=== PATIENT | male | born 1955 | race African-American/Black ===

== ENCOUNTER 2017-06-17 12:24 | Inpatient (IN) | payer OTHER ==
[2017-06-17 12:45] VITALS: BMI 27.5
--- NOTE | 2017-06-17 15:16 | HP ---
CIWA Score - CIWA Score Nausea/Vomitin Muscle Tremors: 3 Anxiety: 3 Agitation: 2 Paroxysmal Sweats: 2 Orientation: 0-Oriented Tacttile Disturbances: 1-Very Mild Itch/Numbness Auditory Disturbances: 0-None Visual Disturbances: 0-None Headache: 1-Very Mild CIWA-Ar Total Score: 15 Admission ROS BHS - HPI Chief Complaint: I need detox from alcohol and I want to go to rehab Allergies/Adverse Reactions: Allergies Allergy/AdvReac Type Severity Reaction Status Date / Time lisinopril Allergy Intermediate Swelling, Verified 06/01/15 13:11 HIVES ,SOB History of Present Illness: 61 y/o male with h/o alcohol dependence presents for rehab. 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 - Ebola screening Have you traveled outside of the country in the last 21 days: No Have you had contact with anyone from an Ebola affected area: No Have you been sick,other than usual withdrawal symptoms: No Do you have a fever: No - Review of Systems Constitutional: Loss of Appetite, Unintentional Wgt. Loss EENT: reports: Dental Problems (missing some teeth) Respiratory: reports: No Symptoms reported Cardiac: reports: No Symptoms Reported GI: reports: Poor Appetite, Poor Fluid Intake : reports: No Symptoms Reported Musculoskeletal: reports: Back Pain, Muscle Pain Integumentary: reports: No Symptoms Reported Neuro: reports: Headache, Numbness, Seizure, Tremors Endocrine: reports: No Symptoms Reported Hematology: reports: No Symptoms Reported Psychiatric: reports: Anxious Other Systems: Reviewed and Negative Patient History - Patient Medical History Hx Anemia: No Hx Asthma: Yes (Pt is on MDI.) Hx Chronic Obstructive Pulmonary Disease (COPD): No Hx Cancer: No Hx Cardiac Disorders: Yes (CABG/ stent placement x3 in 2011) Hx Congestive Heart Failure: No Hx Hypertension: Yes Hx Hypercholesterolemia: Yes (on medication) Hx Pacemaker: No HX Cerebrovascular Accident: Yes (2000 mild left sided weakness; walks with limp ) Hx Seizures: No Hx Dementia: No Hx Diabetes: No Hx Gastrointestinal Disorders: Yes (GERD) Hx Liver Disease: No Hx Genitourinary Disorders: Yes Hx Sexually Transmitted Disorders: No Hx Renal Disease (ESRD): No Hx Thyroid Disease: No Hx Human Immunodeficiency Virus (HIV): No Hx Hepatitis C: No Hx Depression: No Hx Suicide Attempt: No Hx Bipolar Disorder: No Hx Schizophrenia: No - Patient Surgical History Past Surgical History: Yes Hx Neurologic Surgery: No Hx Cataract Extraction: No Hx Cardiac Surgery: Yes (CABG IN 2000 STENT X3 2011) Hx Lung Surgery: No Hx Breast Surgery: No Hx Breast Biopsy: No Hx Abdominal Surgery: No Hx Appendectomy: No Hx Cholecystectomy: No Hx Genitourinary Surgery: No Hx Section: No Hx Orthopedic Surgery: Yes (BILATERAL HIP REPLACEMENT X 2 2010( UNABLE TO REMEMBER EXACT DATES)) Other Surgical History: R KIDNEY BIOPSY IN 1997 Anesthesia Reaction: No - PPD History Previous Implant?: Yes Documented Results: Negative w/proof Implanted On Prior R Admission?: Yes Date: 01/01/15 Results: 0 mm - Smoking Cessation Smoking history: Current every day smoker Have you smoked in the past 12 months: Yes Aproximately how many cigarettes per day: 10 Hx Chewing Tobacco Use: No Initiated information on smoking cessation: Yes 'Breaking Loose' booklet given: 06/17/17 - Substance & Tx. History Hx Alcohol Use: Yes (vodka) Hx Substance Use: Yes Substance Use Type: Cocaine, Marijuana Hx Substance Use Treatment: Yes - Substances Abused Alcohol Route: Oral Frequency: Daily Amount used: 1 quart Age of first use: 16 Date of Last Use: 06/17/17 Alprazolam (Xanax) Route: Oral Frequency: 1-2 times per week Amount used: 2mg Age of first use: 52 Date of Last Use: 06/10/17 Cocaine Route: Inhalation Frequency: 1-2 times per week Amount used: 30-40 dollars Age of first use: 47 Date of Last Use: 06/10/17 Marijuana/Hashish Route: Smoking Frequency: Daily Amount used: $30 Age of first use: 16 Date of Last Use: 06/16/17 Family Disease History - Family Disease History Family Disease History: Diabetes: Mother (), Brother, Heart Disease: Father (), Mother Admission Physical Exam S - Vital Signs Vital Signs: Vital Signs - 24 hr 06/17/17 12:39 Temperature 97.4 F L Pulse Rate 89 Respiratory 20 Rate Blood Pressure 127/74 - Physical General Appearance: Yes: No Apparent Distress, Appropriately Dressed HEENTM: Yes: Hearing grossly Normal, Normal ENT Inspection, Normocephalic, Normal Voice, JOSEFINA Respiratory: Yes: Chest Non-Tender, Lungs Clear, No Respiratory Distress, No Accessory Muscle Use Neck: Yes: No masses,lesions,Nodules Breast: Yes: Breast Exam Deferred Cardiology: Yes: Regular Rhythm, Regular Rate Abdominal: Yes: Normal Bowel Sounds, Non Tender, Soft Genitourinary: Yes: Within Normal Limits Back: Yes: Normal Inspection Musculoskeletal: Yes: full range of Motion, Pelvis Stable Extremities: Yes: Normal Inspection, Normal Range of Motion, Non-Tender Neurological: Yes: bindery worker II-XII NML intact, Alert, Normal Mood/Affect Integumentary: Yes: Normal Color, Warm Lymphatic: Yes: Within Normal Limits - Diagnostic (1) Benign essential hypertension Current Visit: Yes Status: Chronic (2) Cannabis dependence Current Visit: Yes Status: Acute (3) Hypercholesterolemia Current Visit: Yes Status: Chronic (4) Nicotine dependence Current Visit: Yes Status: Chronic (5) Alcohol dependence with uncomplicated withdrawal Current Visit: Yes Status: Acute (6) Hypertension Current Visit: Yes Status: Acute Qualifiers: Hypertension type: essential hypertension Qualified Code(s): I10 - Essential (primary) hypertension (7) Cocaine abuse Current Visit: Yes Status: Acute (8) CAD (coronary artery disease) Current Visit: Yes Status: Acute BHS Breath Alcohol Content Breath Alcohol Content: 0.226 Urine Drug Screen - Results Drug Screen Negative: No Urine Drug Screen Results: THC-Marijuana, GENE-Cocaine, BZO-Benzodiazepines
[2017-06-17] MEDS ORDERED: chlordiazePOXIDE HCL 25 MG CAPSULE PO ONE (15:30)
[2017-06-17] MEDS ORDERED: MAGNESIUM HYDROX 2400MG/30ML ORAL SUSPENSION 30 ML CUP PO PRN (15:30)
[2017-06-17] MEDS ORDERED: NICOTINE POLACRILEX 2 MG GUM BUC PRN (15:30)
[2017-06-17] MEDS ORDERED: MAGNESIUM CITRATE 300 ML BOTTLE PO PRN (15:30)
[2017-06-17] MEDS ORDERED: LOPERAMIDE HCL 2 MG CAPSULE PO PRN (15:30)
[2017-06-17] MEDS ORDERED: guaiFENesin/D-METHORPHAN HB 10 ML UNIT-DOSE CUPS PO PRN (15:30)
[2017-06-17] MEDS ORDERED: ACETAMINOPHEN 325 MG TABLET (FP) PO PRN (15:30)
[2017-06-17] MEDS ORDERED: P-EPHED 60MG/TRIPROLIDI 2.5MG TABLET PO PRN (15:30)
[2017-06-17] MEDS ORDERED: MAG HYDROX/AL HYDROX/SIMETH 30 ML UNIT-DOSE CUP PO PRN (15:30)
[2017-06-17] MEDS ORDERED: IBUPROFEN 400 MG TABLET (FP) PO PRN (15:30)
[2017-06-17] MEDS ORDERED: MENTHOL/PHENOL 1 EACH UD MM PRN (15:30)
[2017-06-17] MEDS ORDERED: ALBUTEROL SO4 6.7 GM HFA INHALER IH PRN (15:40)
[2017-06-17] MEDS: chlordiazePOXIDE HCL 25 MG CAPSULE PO SCH ×2 (18:07→22:22)
[2017-06-17] MEDS: NICOTINE 14 MG/24 HOURS TOPICAL PATCH TD SCH (18:12)
--- NOTE | 2017-06-17 18:46 | PN ---
S Progress Note Note: Patient with abnormal EKG, repeat ordered for tomorrow morning.
[2017-06-17] MEDS: THIAMINE HCL 100 MG TABLET (FP) PO SCH (22:22)
[2017-06-17] MEDS: diphenhydrAMINE HCL 50 MG CAPSULE PO PRN (23:24)
[2017-06-18] MEDS: hydrALAZINE HCL 10 MG TABLET PO SCH ×3 (00:05→22:06)
[2017-06-18] MEDS: ROSUVASTATIN CA 40 MG TABLET PO SCH ×2 (00:07→22:06)
[2017-06-18 00:23] LABS: URINE APPEARANCE CLEAR; URINE BILIRUBIN NEGATIVE (NEGATIVE); URINE BLOOD NEGATIVE (NEGATIVE); URINE COLOR YELLOW; URINE GLUCOSE (UA) NEGATIVE (NEGATIVE); URINE KETONE NEGATIVE (NEGATIVE); URINE LEUK ESTERASE NEGATIVE (NEGATIVE); URINE NITRITE NEGATIVE (NEGATIVE); URINE UROBILINOGEN NEGATIVE mg/dL (0.2-1.0)
[2017-06-18 00:31] LABS: URINE PROTEIN 1+ (NEGATIVE)
[2017-06-18 00:38] LABS: URINE MUCUS RARE; URINE RBC 2 /hpf (0-3); URINE WBC 2 /hpf (3-5)
[2017-06-18] MEDS: chlordiazePOXIDE HCL 25 MG CAPSULE PO SCH ×4 (05:16→22:06)
[2017-06-18 09:47] LABS: MCH 30.1 pg (25.7-33.7); MCHC 33.4 g/dl (32.0-35.9); MEAN CELL VOLUME 90.2 fl (80-96); PLATELET COUNT 198 K/MM3 (134-434); RDW 14.2 % (11.9-15.9); WHITE BLOOD COUNT 4.7 K/mm3 (4.0-10.0)
--- NOTE | 2017-06-18 09:53 | EKG ---
Test Reason : Blood Pressure : / mmHG Vent. Rate : 074 BPM Atrial Rate : 074 BPM P-R Int : 160 ms QRS Dur : 088 ms QT Int : 418 ms P-R-T Axes : 049 034 -40 degrees QTc Int : 463 ms NORMAL SINUS RHYTHM INFERIOR INFARCT (CITED ON OR BEFORE 17-JUN-2017) ABNORMAL ECG WHEN COMPARED WITH ECG OF 17-JUN-2017 18:17, NO SIGNIFICANT CHANGE WAS FOUND Confirmed by MD JOSSELYN, NOEL ([id number]) on 06/18/2017 9:52:33 AM Referred By: Confirmed By:NOEL ARCOS MD
--- NOTE | 2017-06-18 09:54 | EKG ---
Test Reason : Blood Pressure : / mmHG Vent. Rate : 065 BPM Atrial Rate : 065 BPM P-R Int : 162 ms QRS Dur : 084 ms QT Int : 412 ms P-R-T Axes : 058 037 013 degrees QTc Int : 428 ms NORMAL SINUS RHYTHM INFERIOR INFARCT , AGE UNDETERMINED T WAVE ABNORMALITY, CONSIDER LATERAL ISCHEMIA ABNORMAL ECG NO PREVIOUS ECGS AVAILABLE Confirmed by MD JOSSELYN, NOEL ([id number]) on 06/18/2017 9:54:28 AM Referred By: Confirmed By:NOEL ARCOS MD
[2017-06-18 09:57] LABS: ALBUMIN 3.3 g/dl (3.4-5.0); ANION GAP 12 (8-16); CALCIUM 8.5 mg/dL (8.5-10.1); CO2 26 mmol/L (21-32); GLUCOSE,RANDOM 104 mg/dL (74-106); SGOT/AST 15 U/L (15-37); SGPT/ALT 16 U/L (12-78)
[2017-06-18 09:59] LABS: ALK PHOS 49 U/L (45-117); BILIRUBIN,TOTAL 0.5 mg/dL (0.2-1.0); TOT PROT 6.6 g/dl (6.4-8.2)
[2017-06-18] MEDS: hydrOXYzine PAMOATE 50 MG CAPSULE (FP) PO PRN ×2 (10:38→17:40)
[2017-06-18] MEDS: CLOPIDOGREL BISULFATE 75 MG TABLET (FP) PO SCH (10:39)
[2017-06-18] MEDS: ASPIRIN COATED 81 MG TABLET.EC PO SCH (10:39)
[2017-06-18] MEDS: PRENATAL VITAMINS W/ FOLIC ACID TABLET (FP) PO SCH (10:39)
[2017-06-18] MEDS: NICOTINE 14 MG/24 HOURS TOPICAL PATCH TD SCH (10:39)
[2017-06-18] MEDS: SPIRONOLACTONE 25 MG TABLET (FP) PO SCH (10:39)
[2017-06-18] MEDS: amLODIPine BESYLATE 10 MG TABLET (FP) PO SCH (10:39)
[2017-06-18] MEDS: chlordiazePOXIDE HCL 25 MG CAPSULE PO PRN (12:27)
[2017-06-18] MEDS: LIDOCAINE 5% TOPICAL PATCH TP SCH (12:28)
[2017-06-18] MEDS ORDERED: POTASSIUM CHLORIDE TABS 20 MEQ TABLET.ER (FP) PO ONE (17:09)
--- NOTE | 2017-06-18 17:17 | PN ---
S CIWA - CIWA Score Nausea/Vomitin-Mild Nausea/No Vomiting Muscle Tremors: 4-Moderate,w/Arms Extend Anxiety: 4-Mod. Anxious/Guarded Agitation: 4-Moderately Restless Paroxysmal Sweats: 3 Orientation: 0-Oriented Tacttile Disturbances: 1-Very Mild Itch/Numbness Auditory Disturbances: 0-None Visual Disturbances: 0-None Headache: 1-Very Mild CIWA-Ar Total Score: 18 BHS Progress Note (SOAP) Subjective: Anxiety, chills, sweating, headache, nausea, diarrhea Objective: 06/18/17 17:13 Last Vital Signs Temp Pulse Resp BP Pulse Ox 98.0 F 78 20 114/76 06/18/17 13:22 06/18/17 13:22 06/18/17 13:22 06/18/17 13:22 Laboratory Tests 06/17/17 06/18/17 06/18/17 21:22 07:50 07:50 WBC 4.7 RBC 4.78 Hgb 14.4 D Hct 43.1 MCV 90.2 MCH 30.1 MCHC 33.4 RDW 14.2 Plt Count 198 MPV 8.0 Sodium 140 Potassium 3.1 L Chloride 102 Carbon Dioxide 26 Anion Gap 12 BUN 12 D Creatinine 1.0 Creat Clearance w eGFR > 60 Random Glucose 104 Calcium 8.5 Total Bilirubin 0.5 D AST 15 D ALT 16 D Alkaline Phosphatase 49 D Total Protein 6.6 D Albumin 3.3 L D Urine Color Yellow Urine Appearance Clear Urine pH 6.0 Ur Specific [place] 1.015 Urine Protein 1+ H Urine Glucose (UA) Negative Urine Ketones Negative Urine Blood Negative Urine Nitrite Negative Urine Bilirubin Negative Urine Urobilinogen Negative Ur Leukocyte Esterase Negative Urine RBC 2 Urine WBC 2 Urine Mucus Rare RPR Titer 06/18/17 07:50 WBC RBC Hgb Hct MCV MCH MCHC RDW Plt Count MPV Sodium Potassium Chloride Carbon Dioxide Anion Gap BUN Creatinine Creat Clearance w eGFR Random Glucose Calcium Total Bilirubin AST ALT Alkaline Phosphatase Total Protein Albumin Urine Color Urine Appearance Urine pH Ur Specific [place] Urine Protein Urine Glucose (UA) Urine Ketones Urine Blood Urine Nitrite Urine Bilirubin Urine Urobilinogen Ur Leukocyte Esterase Urine RBC Urine WBC Urine Mucus RPR Titer Nonreactive Labs noted: K 3.1, UA: 1+ protein Assessment: 06/18/17 17:14 Withdrawal symptoms Noted with hypokalemia and proteinuria Plan: Continue detox; lidocaine patch ordered for b/l hip pain (patient stated s/p b/ l hip replacement). EKGs noted (no change from previous EKG) Hypokalemia: K Dur 40 meq PO x 1 dose, repeat BMP in AM Proteinuria: encouraged to drink lots of water (water pitcher ordered), repeat UA in AM
[2017-06-18] MEDS: THIAMINE HCL 100 MG TABLET (FP) PO SCH (22:06)
[2017-06-18] MEDS: LIDOCAINE PATCH REMOVAL MC SCH (22:06)
[2017-06-18] MEDS: diphenhydrAMINE HCL 50 MG CAPSULE PO PRN (22:07)
[2017-06-19] MEDS: chlordiazePOXIDE HCL 25 MG CAPSULE PO SCH ×2 (05:54→10:28)
[2017-06-19] MEDS: chlordiazePOXIDE HCL 25 MG CAPSULE PO PRN ×2 (08:02→14:33)
[2017-06-19 10:21] LABS: ANION GAP 9 (8-16); CO2 27 mmol/L (21-32); CREATININE 0.9 mg/dL (0.7-1.3); GLUCOSE,RANDOM 109 mg/dL (74-106)
[2017-06-19] MEDS: PRENATAL VITAMINS W/ FOLIC ACID TABLET (FP) PO SCH (10:28)
[2017-06-19] MEDS: CLOPIDOGREL BISULFATE 75 MG TABLET (FP) PO SCH (10:28)
[2017-06-19] MEDS: ASPIRIN COATED 81 MG TABLET.EC PO SCH (10:29)
[2017-06-19] MEDS: amLODIPine BESYLATE 10 MG TABLET (FP) PO SCH (10:29)
[2017-06-19] MEDS: hydrALAZINE HCL 10 MG TABLET PO SCH ×2 (10:29→22:26)
[2017-06-19] MEDS: NICOTINE 14 MG/24 HOURS TOPICAL PATCH TD SCH (10:29)
[2017-06-19] MEDS: SPIRONOLACTONE 25 MG TABLET (FP) PO SCH (10:31)
--- NOTE | 2017-06-19 11:26 | PN ---
S CIWA - CIWA Score Nausea/Vomitin Muscle Tremors: 4-Moderate,w/Arms Extend Anxiety: 4-Mod. Anxious/Guarded Agitation: 4-Moderately Restless Paroxysmal Sweats: 3 Orientation: 0-Oriented Tacttile Disturbances: 1-Very Mild Itch/Numbness Auditory Disturbances: 0-None Visual Disturbances: 0-None Headache: 1-Very Mild CIWA-Ar Total Score: 20 BHS Progress Note (SOAP) Subjective: nausa, sweats, interrutped sleep, anxiety, tremors, body aches and bilateral hip pain s/p bilateral hip replacements Objective: 06/19/17 11:25 Vital Signs - 8 hr 06/19/17 06/19/17 06/19/17 03:41 06:32 09:21 Temperature 97.2 F L 97.0 F L Pulse Rate 80 85 Respiratory 18 16 18 Rate Blood Pressure 136/89 127/88 Laboratory Tests 06/17/17 06/18/17 06/18/17 21:22 07:50 07:50 WBC 4.7 RBC 4.78 Hgb 14.4 D Hct 43.1 MCV 90.2 MCH 30.1 MCHC 33.4 RDW 14.2 Plt Count 198 MPV 8.0 Sodium 140 Potassium 3.1 L Chloride 102 Carbon Dioxide 26 Anion Gap 12 BUN 12 D Creatinine 1.0 Creat Clearance w eGFR > 60 Random Glucose 104 Calcium 8.5 Total Bilirubin 0.5 D AST 15 D ALT 16 D Alkaline Phosphatase 49 D Total Protein 6.6 D Albumin 3.3 L D Urine Color Yellow Urine Appearance Clear Urine pH 6.0 Ur Specific [place] 1.015 Urine Protein 1+ H Urine Glucose (UA) Negative Urine Ketones Negative Urine Blood Negative Urine Nitrite Negative Urine Bilirubin Negative Urine Urobilinogen Negative Ur Leukocyte Esterase Negative Urine RBC 2 Urine WBC 2 Urine Mucus Rare RPR Titer 06/18/17 06/19/17 07:50 07:00 WBC RBC Hgb Hct MCV MCH MCHC RDW Plt Count MPV Sodium 140 Potassium 3.5 Chloride 104 Carbon Dioxide 27 Anion Gap 9 BUN 10 Creatinine 0.9 Creat Clearance w eGFR Random Glucose 109 H Calcium 9.0 Total Bilirubin AST ALT Alkaline Phosphatase Total Protein Albumin Urine Color Urine Appearance Urine pH Ur Specific [place] Urine Protein Urine Glucose (UA) Urine Ketones Urine Blood Urine Nitrite Urine Bilirubin Urine Urobilinogen Ur Leukocyte Esterase Urine RBC Urine WBC Urine Mucus RPR Titer Nonreactive Assessment: 06/19/17 11:25 withdrawal sx, hypokalemia 06/19/17 11:25 arthritic pains Plan: cont detox, supplement K, check INR, pain medications
[2017-06-19] MEDS: LIDOCAINE 5% TOPICAL PATCH TP SCH ×2 (11:32→12:38)
[2017-06-19] MEDS: hydrOXYzine PAMOATE 50 MG CAPSULE (FP) PO PRN (12:29)
[2017-06-19] MEDS: RANITIDINE HCL 150 MG TABLET (FP) PO SCH ×2 (12:30→22:28)
[2017-06-19] MEDS: NAPROXEN 500 MG TABLET (FP) PO SCH ×2 (12:30→22:28)
[2017-06-19] MEDS: POTASSIUM CHLORIDE ORAL LIQUID 20 MEQ/15 ML PO SCH ×2 (12:31→22:27)
[2017-06-19 14:01] LABS: URINE APPEARANCE CLEAR; URINE BILIRUBIN NEGATIVE (NEGATIVE); URINE BLOOD NEGATIVE (NEGATIVE); URINE COLOR LTYELLOW; URINE GLUCOSE (UA) NEGATIVE (NEGATIVE); URINE KETONE NEGATIVE (NEGATIVE); URINE LEUK ESTERASE NEGATIVE (NEGATIVE); URINE NITRITE NEGATIVE (NEGATIVE); URINE PROTEIN NEGATIVE (NEGATIVE); URINE UROBILINOGEN NEGATIVE mg/dL (0.2-1.0)
[2017-06-19] MEDS: GABAPENTIN 100 MG CAPSULE (FP) PO SCH ×2 (14:30→22:28)
[2017-06-19] MEDS: CYCLOBENZAPRINE HCL 5 MG TABLET PO SCH ×2 (14:30→22:28)
[2017-06-19] MEDS: METHYL SALICYLATE/MENTHOL OINT 30 GM TUBE TP SCH ×2 (14:31→22:25)
[2017-06-19] MEDS: chlordiazePOXIDE 5 MG CAPSULE PO SCH ×2 (17:24→22:28)
[2017-06-19] MEDS: LIDOCAINE PATCH REMOVAL MC SCH (22:00)
[2017-06-19] MEDS: THIAMINE HCL 100 MG TABLET (FP) PO SCH (22:26)
[2017-06-19] MEDS: ZOLPIDEM TARTRATE 10 MG TABLET (PARK CARE ONLY) PO PRN (22:27)
[2017-06-19] MEDS: ROSUVASTATIN CA 20 MG TABLET (FP) PO SCH (22:28)
[2017-06-20] MEDS: chlordiazePOXIDE HCL 25 MG CAPSULE PO PRN (00:28)
[2017-06-20] MEDS: diphenhydrAMINE HCL 50 MG CAPSULE PO PRN (00:28)
[2017-06-20] MEDS: chlordiazePOXIDE 5 MG CAPSULE PO SCH ×2 (05:42→10:15)
[2017-06-20] MEDS: CYCLOBENZAPRINE HCL 5 MG TABLET PO SCH ×3 (07:09→21:56)
[2017-06-20] MEDS: GABAPENTIN 100 MG CAPSULE (FP) PO SCH ×3 (07:10→21:57)
[2017-06-20] MEDS: METHYL SALICYLATE/MENTHOL OINT 30 GM TUBE TP SCH ×2 (10:15→23:06)
[2017-06-20] MEDS: POTASSIUM CHLORIDE ORAL LIQUID 20 MEQ/15 ML PO SCH ×2 (10:15→21:56)
[2017-06-20] MEDS: amLODIPine BESYLATE 10 MG TABLET (FP) PO SCH (10:15)
[2017-06-20] MEDS: PRENATAL VITAMINS W/ FOLIC ACID TABLET (FP) PO SCH (10:15)
[2017-06-20] MEDS: NICOTINE 14 MG/24 HOURS TOPICAL PATCH TD SCH (10:16)
[2017-06-20] MEDS: hydrALAZINE HCL 10 MG TABLET PO SCH ×2 (10:16→21:57)
[2017-06-20] MEDS: CLOPIDOGREL BISULFATE 75 MG TABLET (FP) PO SCH (10:16)
[2017-06-20] MEDS: SPIRONOLACTONE 25 MG TABLET (FP) PO SCH (10:16)
[2017-06-20] MEDS: ASPIRIN COATED 81 MG TABLET.EC PO SCH (10:16)
[2017-06-20] MEDS: LIDOCAINE 5% TOPICAL PATCH TP SCH (10:16)
[2017-06-20] MEDS: NAPROXEN 500 MG TABLET (FP) PO SCH (10:18)
[2017-06-20] MEDS: hydrOXYzine PAMOATE 50 MG CAPSULE (FP) PO PRN ×3 (10:19→20:18)
[2017-06-20] MEDS: RANITIDINE HCL 150 MG TABLET (FP) PO SCH ×2 (10:47→21:57)
--- NOTE | 2017-06-20 12:15 | PN ---
BHS Progress Note (SOAP) Subjective: Interrupted sleep, Tremors, Body Aches. Objective: PT. A & O X 2 (DISORIENTED ABOUT DAY / DATE). PT. OBSERVED AMBULATING ON UNIT5. NO ACUTE DISTRESS. PT. DENIES CHEST PAIN. 06/20/17 12:12 Vital Signs Temperature 98.9 F 06/20/17 09:24 Pulse Rate 92 H 06/20/17 09:24 Respiratory Rate 16 06/20/17 09:24 Blood Pressure 140/93 06/20/17 09:24 O2 Sat by Pulse Oximetry (%) Laboratory Tests 06/17/17 06/18/17 06/18/17 21:22 07:50 07:50 WBC 4.7 RBC 4.78 Hgb 14.4 D Hct 43.1 MCV 90.2 MCH 30.1 MCHC 33.4 RDW 14.2 Plt Count 198 MPV 8.0 Sodium 140 Potassium 3.1 L Chloride 102 Carbon Dioxide 26 Anion Gap 12 BUN 12 D Creatinine 1.0 Creat Clearance w eGFR > 60 Random Glucose 104 Calcium 8.5 Total Bilirubin 0.5 D AST 15 D ALT 16 D Alkaline Phosphatase 49 D Total Protein 6.6 D Albumin 3.3 L D Urine Color Yellow Urine Appearance Clear Urine pH 6.0 Ur Specific [place] 1.015 Urine Protein 1+ H Urine Glucose (UA) Negative Urine Ketones Negative Urine Blood Negative Urine Nitrite Negative Urine Bilirubin Negative Urine Urobilinogen Negative Ur Leukocyte Esterase Negative Urine RBC 2 Urine WBC 2 Urine Mucus Rare RPR Titer 06/18/17 06/19/17 06/19/17 07:50 07:00 10:05 WBC RBC Hgb Hct MCV MCH MCHC RDW Plt Count MPV Sodium 140 Potassium 3.5 Chloride 104 Carbon Dioxide 27 Anion Gap 9 BUN 10 Creatinine 0.9 Creat Clearance w eGFR Random Glucose 109 H Calcium 9.0 Total Bilirubin AST ALT Alkaline Phosphatase Total Protein Albumin Urine Color L[place] Urine Appearance Clear Urine pH 6.0 Ur Specific [place] 1.020 Urine Protein Negative Urine Glucose (UA) Negative Urine Ketones Negative Urine Blood Negative Urine Nitrite Negative Urine Bilirubin Negative Urine Urobilinogen Negative Ur Leukocyte Esterase Negative Urine RBC Urine WBC Urine Mucus RPR Titer Nonreactive LABS NOTED. RESULTS OF REPEAT CMP AND UA NOTED. 06/20/17 12:14 Assessment: 06/20/17 12:13 WITHDRAWAL SYMPTOMS. Plan: CONTINUE DETOX.
[2017-06-20] MEDS ORDERED: IBUPROFEN 600 MG TABLET (FP) PO PRN (13:31)
[2017-06-20] MEDS ORDERED: ACETAMINOPHEN 325 MG TABLET (FP) PO PRN ×2 (14:31→14:56)
[2017-06-20] MEDS: chlordiazePOXIDE HCL 10 MG CAPSULE PO SCH ×2 (17:24→23:06)
[2017-06-20] MEDS: ROSUVASTATIN CA 20 MG TABLET (FP) PO SCH (21:56)
[2017-06-20] MEDS: ZOLPIDEM TARTRATE 10 MG TABLET (PARK CARE ONLY) PO PRN (21:56)
[2017-06-20] MEDS: THIAMINE HCL 100 MG TABLET (FP) PO SCH (21:56)
[2017-06-20] MEDS: LIDOCAINE PATCH REMOVAL MC SCH (23:07)
[2017-06-21] MEDS: CYCLOBENZAPRINE HCL 5 MG TABLET PO SCH (05:14)
[2017-06-21] MEDS: chlordiazePOXIDE HCL 10 MG CAPSULE PO SCH ×2 (05:14→10:41)
[2017-06-21] MEDS: GABAPENTIN 100 MG CAPSULE (FP) PO SCH (05:14)
[2017-06-21 10:05] VITALS: BP 139/92; PULSE 94; TEMP 97.4
[2017-06-21] MEDS: RANITIDINE HCL 150 MG TABLET (FP) PO SCH (10:38)
[2017-06-21] MEDS: hydrALAZINE HCL 10 MG TABLET PO SCH (10:38)
[2017-06-21] MEDS: PRENATAL VITAMINS W/ FOLIC ACID TABLET (FP) PO SCH (10:38)
[2017-06-21] MEDS: ASPIRIN COATED 81 MG TABLET.EC PO SCH (10:38)
[2017-06-21] MEDS: POTASSIUM CHLORIDE ORAL LIQUID 20 MEQ/15 ML PO SCH (10:38)
[2017-06-21] MEDS: CLOPIDOGREL BISULFATE 75 MG TABLET (FP) PO SCH (10:38)
[2017-06-21] MEDS: amLODIPine BESYLATE 10 MG TABLET (FP) PO SCH (10:38)
[2017-06-21] MEDS: SPIRONOLACTONE 25 MG TABLET (FP) PO SCH (10:39)
[2017-06-21] MEDS: NICOTINE 14 MG/24 HOURS TOPICAL PATCH TD SCH (10:39)
[2017-06-21] MEDS: LIDOCAINE 5% TOPICAL PATCH TP SCH (10:39)
[2017-06-21] MEDS: METHYL SALICYLATE/MENTHOL OINT 30 GM TUBE TP SCH (10:40)
--- NOTE | 2017-06-21 16:50 | DS ---
[facility] Detox Discharge Summary Admission Date: 06/17/17 Discharge Date: 06/21/17 - History Present History: Alcohol Dependence, Cannabis Dependence, Cocaine Dependence Additional Comments: PATIENT WILL GO TO [facility] FOR AFTERCARE. PATIENT WAS DISCHARGED FROM DETOX UNIT IN STABLE MEDICAL CONDITION. Pertinent Past History: Asthma, HTN, CAD, History of CABG, History of Stent Placement (X3), Hypercholesterolemia, GERD, History of Bilateral Hip Replacement, History of CVA. - Physical Exam Results Vital Signs: Vital Signs Temperature 97.4 F L 06/21/17 10:05 Pulse Rate 94 H 06/21/17 10:05 Respiratory Rate 20 06/21/17 10:05 Blood Pressure 139/92 06/21/17 10:05 O2 Sat by Pulse Oximetry (%) Pertinent Admission Physical Exam Findings: WITHDRAWAL SYMPTOMS. Laboratory Tests 06/17/17 06/18/17 06/18/17 21:22 07:50 07:50 WBC 4.7 RBC 4.78 Hgb 14.4 D Hct 43.1 MCV 90.2 MCH 30.1 MCHC 33.4 RDW 14.2 Plt Count 198 MPV 8.0 Sodium 140 Potassium 3.1 L Chloride 102 Carbon Dioxide 26 Anion Gap 12 BUN 12 D Creatinine 1.0 Creat Clearance w eGFR > 60 Random Glucose 104 Calcium 8.5 Total Bilirubin 0.5 D AST 15 D ALT 16 D Alkaline Phosphatase 49 D Total Protein 6.6 D Albumin 3.3 L D Urine Color Yellow Urine Appearance Clear Urine pH 6.0 Ur Specific [place] 1.015 Urine Protein 1+ H Urine Glucose (UA) Negative Urine Ketones Negative Urine Blood Negative Urine Nitrite Negative Urine Bilirubin Negative Urine Urobilinogen Negative Ur Leukocyte Esterase Negative Urine RBC 2 Urine WBC 2 Urine Mucus Rare RPR Titer 06/18/17 06/19/17 06/19/17 07:50 07:00 10:05 WBC RBC Hgb Hct MCV MCH MCHC RDW Plt Count MPV Sodium 140 Potassium 3.5 Chloride 104 Carbon Dioxide 27 Anion Gap 9 BUN 10 Creatinine 0.9 Creat Clearance w eGFR Random Glucose 109 H Calcium 9.0 Total Bilirubin AST ALT Alkaline Phosphatase Total Protein Albumin Urine Color [place] Urine Appearance Clear Urine pH 6.0 Ur Specific [place] 1.020 Urine Protein Negative Urine Glucose (UA) Negative Urine Ketones Negative Urine Blood Negative Urine Nitrite Negative Urine Bilirubin Negative Urine Urobilinogen Negative Ur Leukocyte Esterase Negative Urine RBC Urine WBC Urine Mucus RPR Titer Nonreactive LABS NOTED. - Treatment Hospital Course: Detox Protocol Followed, Detoxed Safely, Responded well, Discharged Condition Good, Rehab Referral Accepted Patient has Accepted a Rehab Referral to: [facility]. - Medication Discharge Medications: Ambulatory Orders Aspirin Coated [Ecotrin -] 325 mg PO DAILY #30 tablet.ec 07/26/14 Nitroglycerin Sublingual [Nitrostat -] 0.4 mg SL DAILY PRN #100 tab 07/26/14 Warfarin Na [Coumadin] 0.5 mg PO HS 06/01/15 Aspirin [Aspirin EC] 325 mg PO DAILY #30 tablet. 06/04/15 Hydralazine HCl 10 mg PO BID #60 tablet 06/04/15 Hydrochlorothiazide [Hctz -] 25 mg PO DAILY #30 tablet 06/04/15 Omeprazole [Prilosec] 20 mg PO DAILY #30 capsule. 06/04/15 Rosuvastatin [Crestor -] 40 mg PO HS #30 tablet 06/04/15 Warfarin Na [Coumadin -] 5 mg PO DAILY@1800 7 Days 06/04/15 Warfarin Sodium [Coumadin] 5 mg PO HS #7 tablet 06/04/15 Albuterol Sulfate Inhaler - [Ventolin HFA Inhaler -] 2 inh PO Q4H PRN #1 inhaler 06/21/17 Amlodipine Besylate [Norvasc -] 10 mg PO DAILY #30 tablet 06/21/17 Aspirin [ASA -] 81 mg PO DAILY #30 tab.chew 06/21/17 Clopidogrel Bisulfate [Plavix -] 75 mg PO DAILY #30 tablet 06/21/17 Hydralazine HCl 10 mg PO DAILY #30 tablet 06/21/17 Potassium Chloride 20 meq PO DAILY #30 tablet.er 06/21/17 Spironolactone 25 mg PO DAILY #30 tablet 06/21/17 - Diagnosis (1) Alcohol dependence with uncomplicated withdrawal Status: Acute (2) CAD (coronary artery disease) Status: Chronic Qualifiers: Coronary Disease-Associated Artery/Lesion type: unspecified vessel or lesion type [place] vs. transplanted heart: unspecified whether [place] or transplanted heart Associated angina: angina presence unspecified Qualified Code(s): I25.10 - Atherosclerotic heart disease of [place] coronary artery without angina pectoris (3) Cannabis dependence Status: Acute (4) Cocaine abuse Status: Acute (5) Asthma Status: Chronic (6) Benign essential hypertension Status: Chronic (7) Bilateral hip pain Status: Chronic (8) GERD (gastroesophageal reflux disease) Status: Chronic Qualifiers: Esophagitis presence: esophagitis presence not specified Qualified Code(s): K21.9 - Gastro-esophageal reflux disease without esophagitis (9) Hypercholesterolemia Status: Chronic (10) Nicotine dependence Status: Chronic - AMA Did Patient Leave Against Medical Advice: No
== END 2017-06-21 11:50 | disposition home or self-care (01) | DRG 774 ==
LOC: YASAS 12:24 → Y3N 16:31
PROVIDERS: ADMIT Internal Medicine Addiction Medicine; ATTEND Internal Medicine Addiction Medicine
PROC: HZ2ZZZZ Detoxification Services for Substance Abuse Treatment (ICD-10-PCS; principal; 2017-06-17)
DX: F10.230 Alcohol dependence with withdrawal, uncomplicated (principal); F14.10 Cocaine abuse, uncomplicated; F12.20 Cannabis dependence, uncomplicated; F17.210 Nicotine dependence, cigarettes, uncomplicated; I25.10 Atherosclerotic heart disease of native coronary artery without angina pectoris; Z95.1 Presence of aortocoronary bypass graft; Z95.5 Presence of coronary angioplasty implant and graft; I10 Essential (primary) hypertension; E78.00 Pure hypercholesterolemia, unspecified; J45.909 Unspecified asthma, uncomplicated; K21.9 Gastro-esophageal reflux disease without esophagitis; M25.551 Pain in right hip; M25.552 Pain in left hip; I69.854 Hemiplegia and hemiparesis following other cerebrovascular disease affecting left non-dominant side
CPT/HCPCS: 36415; 80048; 80053; 81003; 81015; 85027; 86593; 93005; 93010